=== PATIENT | female | born 1950 | race Caucasian/White ===

== ENCOUNTER → 2017-04-01 | Outpatient (CLI) | payer MEDICARE, OTHER ==
[~2017-04-01] MED LIST: ALLEGRA ALLERG180 MG PO; ALLEGRA30 MG PO; ASTELIN30 ML; CALCIUM 600 +1 EAC1 PO; COLESTIPOL; COLESTIPOL HCL1 G1 PO; COZAAR 50 MG TA50 M2 PO; FEMARA2.5 MG PO; FLEXERIL PO; FLONASE 0.05%50 MCG NASAL; HORMONE PATCH; IBUPROFEN 400400 M2 PO; IBUPROFEN 800800 MG PO; LISINOPRIL10 MG; LITE COAT ASPI325 MG PO; MACROBID 100 M100 M1 PO; MOBIC15 MG PO; PERCOCET 7.5-31 EACH PO; PREDNISONE 20 M20 M1 PO; PRILOSEC OTC20 MG PO; PYRIDIUM100 MG PO; SINGULAIR; SINGULAIR 10 MG10 M1 PO; TAMSULOSIN HCL0.4 MG PO; UNICOMPLEX M TA1 TA1 PO; VICODIN 5-5001 EACH PO; VISTARIL 25 MG25 M1 PO; ZOFRAN4 MG PO; ZOMETA 4 MG4 MG/5 M1 IV; ZYRTEC10 M2 PO; [UNRECOGNIZED DRUG - OTHER]
== END ==
LOC: M.RAD 09:38
DX: C50.411 Malignant neoplasm of upper-outer quadrant of right female breast (principal)

== ENCOUNTER 2017-04-10 18:33 | Inpatient (IN) | payer MEDICARE, OTHER ==
[~2017-04-10] VITALS: Ht 165.1 cm; Wt 113.9 kg
[~2017-04-10 18:33] MED LIST changes: -CALCIUM 600 +1 EAC1 PO; -FEMARA2.5 MG PO; -LITE COAT ASPI325 MG PO; -UNICOMPLEX M TA1 TA1 PO; -ZOMETA 4 MG4 MG/5 M1 IV; -[UNRECOGNIZED DRUG - OTHER]
[2017-04-10 18:36] VITALS: BP 162/85
[2017-04-10] MEDS ORDERED: FEMARA2.5 MG PO (18:50)
[2017-04-10] MEDS ORDERED: ZOMETA 4 MG4 MG/5 M1 IV (18:51)
[2017-04-10] MEDS ORDERED: CALCIUM 600 +1 EAC1 PO (18:51)
[2017-04-10] MEDS ORDERED: UNICOMPLEX M TA1 TA1 PO (18:51)
[2017-04-10] MEDS ORDERED: [UNRECOGNIZED DRUG - OTHER] (18:52)
[2017-04-10 19:10] LABS: ABSOLUTE EOSINOPHILS 0.3 thou/uL (0.0-0.7); ABSOLUTE LYMPHOCYTES 2.6 thou/uL (0.8-5.3); ABSOLUTE MONOCYTES 0.8 thou/uL (0.0-1.2); ABSOLUTE NEUTROPHILS 4.9 thou/uL (1.6-8.1); BASOPHILS 0.6 %; EOSINOPHILS 3.1 %; HEMATOCRIT 42.6 % (37.0-47.0); HEMOGLOBIN 14.1 gm/dL (12.0-15.0); LYMPHOCYTES 30.4 %; MCH 29.7 pg (26.0-34.0); MCHC 33.2 g/dL (28.0-37.0); MCV 89.3 fL (80.0-100.0); MONOCYTES 9.2 %; MPV 8.2 fl. (7.2-11.1); NUCLEATED RBCS 0 /100WBC; PLATELET COUNT* 204 thou/uL (150-400); POLYS 56.7 %; RBC 4.77 mil/uL (4.20-5.00); RDW-CV 14.3 % (10.5-14.5); WBC 8.6 thou/uL (4.0-11.0)
[2017-04-10 19:15] LABS: ANION GAP 12 mmol/L (7-16); BUN 16 mg/dL (7-18); CALCIUM 8.7 mg/dL (8.5-10.1); CHLORIDE 108 mmol/L (98-107); CO2 24 mmol/L (21-32); CREATININE 0.8 mg/dL (0.6-1.3); GLUCOSE 165 mg/dL (70-99); SODIUM 144 mmol/L (136-145)
[2017-04-10 19:17] LABS: APTT 24.1 Seconds (25.0-31.3); PROTIME 9.4 Seconds (9.20-11.50)
[2017-04-10 19:26] LABS: ALBUMIN 3.5 g/dL (3.4-5.0); ALKALINE PHOSPHATASE 70 U/L (46-116); LIPASE 109 U/L (73-393); NT-PRO BRAIN NAT PEPTIDE 26 pg/mL (<300); SGOT 34 U/L (15-37); SGPT 48 U/L (30-65); TOTAL BILIRUBIN 0.5 mg/dL (<0.1-1.0); TOTAL PROTEIN 6.8 g/dL (6.4-8.2); TROPONIN-I LEVEL <0.06 ng/mL (<0.06)
[2017-04-10 21:06] VITALS: BP 146/73
[2017-04-10 21:30] VITALS: BP 131/70
[2017-04-11] VITALS: BP 141/69
[2017-04-11 01:14] LABS: HEMATOCRIT 41.4 % (37.0-47.0); HEMOGLOBIN 13.8 gm/dL (12.0-15.0); MCH 29.5 pg (26.0-34.0); MCHC 33.2 g/dL (28.0-37.0); MCV 88.7 fL (80.0-100.0); RBC 4.67 mil/uL (4.20-5.00); WBC 7.5 thou/uL (4.0-11.0)
[2017-04-11 01:17] LABS: CALCIUM 8.5 mg/dL (8.5-10.1); CREATININE 0.7 mg/dL (0.6-1.3); MAGNESIUM 2.1 mg/dL (1.8-2.4); POTASSIUM 3.9 mmol/L (3.5-5.1)
[2017-04-11 04:00] VITALS: BP 132/70
[2017-04-11 08:00] VITALS: BP 118/72
[2017-04-11 11:50] VITALS: BP 133/76
--- NOTE | 2017-04-11 13:43 | EKG ---
[place] [address] ELECTROCARDIOGRAM REPORT Name: JOSE MIGUEL SALAZAR Room: [address] ADM IN .R.#: [id number] Admission: 04/10/17 Attend Phys: Bala Bah, Discharge: Date of : 52 Report #: [id number] THIS REPORT FOR: //name// [facility] ED Test Date: 2017-04-10 Test Time: 18:37:07 Pat Name: JOSE MIGUEL SALAZAR Department: Room: [facility] Gender: F Yard Person: Vera VELASQUEZ : 1950 Requested By: Moni Villalobos Order Number: [id number] MD: Cain Noyola Measurements Intervals [place] Rate: 88 P: 57 [place]: 131 QRS: 12 QRSD: 82 T: 67 QT: 354 QTc: 429 Interpretive Statements Sinus rhythm Ventricular premature complex Compared to ECG 01/21/2016 08:09:05 Ventricular premature complex(es) now present Short [place] interval no longer present Electronically Signed On 04-11-2017 13:42:50 PHARMACY STOCK CLERK by Cain Noyola [email or web address] <ELECTRONICALLY SIGNED> By: Cain Noyola MD, FACC 04/11/17 1342 [id number] Cain Noyola MD, FAC /EPI
[2017-04-11 15:05] VITALS: BP 117/71
[2017-04-11 15:47] VITALS: BP 117/71
[2017-04-11] MEDS ORDERED: LITE COAT ASPI325 MG PO (15:56)
[2017-04-12 10:09] LABS: GLYCOHEMOGLOBIN (HGB A1C) 5.5 % (4.8-5.6)
--- NOTE | 2017-04-12 17:53 | CON ---
[address] [address] CONSULTATION Name: JOSE MIGUEL SALAZAR Room: [address] IN M.R.#: [id number] Admission: 04/10/17 Attend Phys: Bala Bah, Discharge: 04/11/17 Date of : 52 Report #: [id number] THIS REPORT FOR: //name// CC: Autumn Bah INDICATION: Chest pain. HISTORY OF PRESENT ILLNESS: The patient is a very pleasant 66-year-old white female with no prior cardiac history. Stress testing several years ago was unremarkable. Cardiac risk factors include hypertension. The patient was seen yesterday with left-sided chest discomfort radiating to the left shoulder and upper arm. The pain lasted for approximately 30-60 minutes. There was no associated diaphoresis, shortness of breath or nausea. The pain resolved spontaneously. Electrocardiogram showed sinus rhythm without acute ST or T-wave abnormality. Troponins are less than 0.06. At the time of interview, the patient is not having chest pain. The pain was not exertional. She states in fact that with exertion the pain seemed better. She is without other cardiac complaint at this time. PAST MEDICAL HISTORY: 1. Hypertension. 2. Gastroesophageal reflux. 3. Right breast cancer, status post lumpectomy and radiation treatment. PAST SURGICAL HISTORY: 1. Tonsillectomy. 2. TAHBSO. 3. Cholecystectomy. 4. Rotator cuff surgery. 5. Right lumpectomy. 6. Deviated septal repair. SOCIAL HISTORY: The patient is . She does not smoke. She does not drink alcohol. FAMILY HISTORY: Noncontributory. ALLERGIES: MORPHINE, FELDENE and HYDROCODONE. HOME MEDICATIONS: Caltrate 600 with vitamin D 1 tablet daily, colestipol 1 gram b.i.d., Christina 180 mg daily, Flonase nasal spray daily, ibuprofen 400 q.6 hours p.r.n., letrozole 2.5 mg daily, losartan 50 mg at bedtime, meloxicam 15 mg daily, Singulair 10 mg daily, multivitamin 1 tablet daily, omeprazole 20 mg daily, Zometa 4 mg intravenous q.6 [place] [address] CONSULTATION Name: JOSE MIGUEL SALAZAR Room: [address]#: [id number] Admission: 04/10/17 Attend Phys: Bala Bah, Discharge: 04/11/17 Date of : 52 Report #: [id number] REVIEW OF SYSTEMS: A 14-point review of systems is positive for chronic cough nonproductive, chest discomfort as outlined above, dyspnea on exertion, history of anemia prior to hysterectomy, history of right breast cancer, history of seasonal allergies and medical allergies as outlined above. She wears glasses without acute visual change. She has decreased hearing. Otherwise, 14-point review of systems was unremarkable. PHYSICAL EXAMINATION: VITAL SIGNS: Stable. Blood pressure was 133/76, pulse 69 and regular. GENERAL: This is moderately obese, pleasant white female in no distress. Mood and affect appropriate. HEENT: The patient is wearing glasses. Extraocular muscles intact. Mucous membranes are moist. NECK: Shows no jugular venous distention. There are no carotid bruits. CHEST: Reveals clear lung [place] without wheezes, rales or rhonchi. CARDIOVASCULAR: Reveals regular rhythm with normal S1 and S2. I do not appreciate gallop or murmur. ABDOMEN: Reveals a protuberant abdomen, soft and nontender. Bowel sounds present. EXTREMITIES: Shows no edema. Peripheral pulses 2+ and palpable. LABORATORY DATA: A 12-lead EKG shows sinus rhythm without significant ST or T-wave abnormality. Labs are reviewed. Troponins are less than 0.06 on 3 separate occasions. NT-proBNP is 26. D-dimer was normal. IMPRESSION AND RECOMMENDATIONS: 1. Chest pain. The patient has ruled out for myocardial infarction. EKG is not showing any acute abnormality. I believe she could probably be discharged to home to follow up with outpatient stress testing. 2. Hypertension, adequately controlled on current medications. 3. Gastroesophageal reflux disease. Continue proton pump inhibitors outlined above. <ELECTRONICALLY SIGNED> By: Cain Noyola MD, FACC 04/12/17 1753 [id number] [id number] Noyola MD, FACC /nt
== END 2017-04-11 16:22 | disposition home or self-care (01) | DRG 392 ==
LOC: M.ERS 18:33 → M.TBA-ER 19:52 → M.2W 21:19
PROVIDERS: Personal Emergency Response Attendant; ADMIT Family Medicine
DX: K21.9 Gastro-esophageal reflux disease without esophagitis (principal); Z68.41 Body mass index [BMI] 40.0-44.9, adult; R07.9 Chest pain, unspecified; I10 Essential (primary) hypertension; E66.01 Morbid (severe) obesity due to excess calories; R73.9 Hyperglycemia, unspecified; E88.81 Metabolic syndrome and other insulin resistance; Z90.710 Acquired absence of both cervix and uterus; Z85.3 Personal history of malignant neoplasm of breast; Z92.3 Personal history of irradiation; Z90.79 Acquired absence of other genital organ(s); Z90.722 Acquired absence of ovaries, bilateral; Z79.51 Long term (current) use of inhaled steroids; Z79.899 Other long term (current) drug therapy; Z88.5 Allergy status to narcotic agent; Z88.8 Allergy status to other drugs, medicaments and biological substances; Z82.49 Family history of ischemic heart disease and other diseases of the circulatory system

== ENCOUNTER → 2017-10-01 | Outpatient (CLI) | payer MEDICARE, OTHER ==
[~2017-10-01] MED LIST changes: +CALCIUM 600 +1 EAC1 PO; +FEMARA2.5 MG PO; +LITE COAT ASPI325 MG PO; +UNICOMPLEX M TA1 TA1 PO; +ZOMETA 4 MG4 MG/5 M1 IV; +[UNRECOGNIZED DRUG - OTHER]
== END ==
LOC: M.RAD 04-12 10:03
DX: C50.411 Malignant neoplasm of upper-outer quadrant of right female breast (principal); I74.4 Embolism and thrombosis of arteries of extremities, unspecified

== ENCOUNTER → 2018-04-05 | Outpatient (CLI) | payer MEDICARE, OTHER | LOC: M.RAD 08:46 | DX: C50.411 Malignant neoplasm of upper-outer quadrant of right female breast (principal); R92.2 Inconclusive mammogram; Z17.0 Estrogen receptor positive status [ER+]; Z85.3 Personal history of malignant neoplasm of breast ==

== ENCOUNTER → 2018-10-07 | Outpatient (CLI) | payer MEDICARE, OTHER | LOC: M.RAD 09:55 | DX: R92.8 Other abnormal and inconclusive findings on diagnostic imaging of breast (principal); Z85.3 Personal history of malignant neoplasm of breast ==

== ENCOUNTER → 2019-04-06 | Outpatient (CLI) | payer MEDICARE, OTHER | LOC: M.RAD 10:37 | DX: Z12.31 Encounter for screening mammogram for malignant neoplasm of breast (principal) ==

== ENCOUNTER → 2020-04-15 | Outpatient (CLI) | payer MEDICARE, OTHER | LOC: M.RAD 04-08 10:00 | PROVIDERS: ATTEND Internal Medicine Hematology & Oncology | DX: Z12.31 Encounter for screening mammogram for malignant neoplasm of breast (principal); N64.89 Other specified disorders of breast; Z98.890 Other specified postprocedural states ==

== ENCOUNTER → 2021-04-16 | Outpatient (CLI) | payer MEDICARE, OTHER | LOC: M.RAD 08:41 | PROVIDERS: ATTEND Internal Medicine Hematology & Oncology | DX: Z12.31 Encounter for screening mammogram for malignant neoplasm of breast (principal); N64.89 Other specified disorders of breast; Z85.3 Personal history of malignant neoplasm of breast ==

== ENCOUNTER → 2021-04-18 | Outpatient (CLI) | payer MEDICARE, OTHER | LOC: M.ULTRA 08:59 | PROVIDERS: ATTEND Radiology Diagnostic Radiology | DX: C50.411 Malignant neoplasm of upper-outer quadrant of right female breast (principal); N60.01 Solitary cyst of right breast; N63.10 Unspecified lump in the right breast, unspecified quadrant ==

== ENCOUNTER → 2021-04-21 | Outpatient (CLI) | payer MEDICARE, OTHER | LOC: M.RAD 08:47 | PROVIDERS: ATTEND Internal Medicine Hematology & Oncology | DX: C50.411 Malignant neoplasm of upper-outer quadrant of right female breast (principal) ==